=== PATIENT | male | born 1965 | race Caucasian/White ===

== ENCOUNTER 2018-12-17 15:49 | Emergency (ER) | payer OTHER ==
[2018-12-17 16:01] VITALS: BP 139/94
[2018-12-17] MEDS ORDERED: ASPIRIN 81 MG TAB.CHEW PO ONE (16:15)
[2018-12-17 16:17] LABS: BASO % 0 % (0-3); EOS # 0.1 x10^3/uL (0.0-0.7); EOS % 1 % (0-3); HEMATOCRIT 48.8 % (39.0-53.0); HEMOGLOBIN 16.4 g/dL (13.0-17.5); LYMPH # 2.2 x10^3/uL (1.0-4.8); LYMPH % 32 % (24-48); MEAN CORPUSCULAR HEMOGLOBIN 32 pg (25-35); MEAN CORPUSCULAR HGB CONC 34 g/dL (31-37); MEAN CORPUSCULAR VOLUME 94 fL (79-100); MONO # 0.8 x10^3/uL (0.0-1.1); MONO % 12 % (0-9); NEUT # 3.6 x10^3uL (1.8-7.7); NEUT % 54 % (31-73); PLATELET COUNT 195 x10^3/uL (140-400); RED BLOOD COUNT 5.19 x10^6/uL (4.30-5.70); RED CELL DISTRIBUTION WIDTH 12.7 % (11.5-14.5); WHITE BLOOD COUNT 6.8 x10^3/uL (4.0-11.0)
[2018-12-17 16:31] LABS: ALBUMIN 3.6 g/dL (3.4-5.0); CALCIUM 9.3 mg/dL (8.5-10.1); GFR 78.2; POTASSIUM 3.9 mmol/L (3.5-5.1); TOTAL BILIRUBIN 0.6 mg/dL (0.2-1.0); TOTAL PROTEIN 7.2 g/dL (6.4-8.2)
--- NOTE | 2018-12-17 16:46 | EKG ---
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
--- NOTE | 2018-12-17 17:34 | PHYS DOC ---
Past History Past Medical History: No Pertinent History Past Surgical History: Tonsillectomy Alcohol Use: None Drug Use: None Adult General Chief Complaint Chief Complaint: CHEST PAIN HPI HPI 53-year-old male presents with chest pain. Patient states that he has been having intermittent chest pain for the last 3 weeks. It is left-sided and radiates up into his neck. He does seem to be worse with exertion and improves with rest. Patient denies shortness of breath or diaphoresis. The emergency room today because he additionally has tingling in the left arm and the episode has lasted for several hours. Usually these episodes last less than 30 minutes. Today's chest pain is a 3 out of 10 pressure sensation. He denies fever or chills. He had a stress test but has been about 5 years. He does have a family history of cardiovascular disease. Review of Systems Review of Systems Constitutional: Denies fever or chills [] Eyes: Denies change in visual acuity, redness, or eye pain [] HENT: Denies nasal congestion or sore throat [] Respiratory: Denies cough or shortness of breath [] Cardiovascular: No additional information not addressed in HPI [] GI: Denies abdominal pain, nausea, vomiting, bloody stools or diarrhea [] : Denies dysuria or hematuria [] Musculoskeletal: Denies back pain or joint pain [] Integument: Denies rash or skin lesions [] Neurologic: Denies headache, focal weakness or sensory changes [] Endocrine: Denies polyuria or polydipsia [] All other systems were reviewed and found to be within normal limits, except as documented in this note. Current Medications Current Medications Current Medications Medications (Trade) Dose Ordered Sig/Mely Start Time Stop Time Status Last Admin Dose Admin Aspirin (Children'S Aspirin) 324 mg 1X ONCE 12/17/18 16:15 12/17/18 16:16 DC 12/17/18 16:07 324 MG Allergies Allergies Allergies Coded Allergies Type Severity Reaction Last Updated Verified No Known Drug Allergies 11/17/14 No Physical Exam Physical Exam Constitutional: Well developed, well nourished, no acute distress, non-toxic appearance. [] HENT: Normocephalic, atraumatic, bilateral external ears normal, oropharynx moist, no oral exudates, nose normal. [] Eyes: PERRLA, EOMI, conjunctiva normal, no discharge. [] Neck: Normal range of motion, no tenderness, supple, no stridor. [] Cardiovascular:Heart rate regular rhythm, no murmur [] Lungs & Thorax: Bilateral breath sounds clear to auscultation [] Abdomen: Bowel sounds normal, soft, no tenderness, no masses, no pulsatile masses. [] Skin: Warm, dry, no erythema, no rash. [] Back: No tenderness, no CVA tenderness. [] Extremities: No tenderness, no cyanosis, no clubbing, ROM intact, no edema. [] Neurologic: Alert and oriented X 3, normal motor function, normal sensory function, no focal deficits noted. [] Psychologic: Affect normal, judgement normal, mood normal. [] Current Patient Data Vital Signs Vital Signs Date Time Temp Pulse Resp B/P (MAP) Pulse Ox O2 Delivery O2 Flow Rate FiO2 12/17/18 16:01 97.4 70 18 96 Room Air Lab Results Laboratory Tests Test 12/17/18 15:55 White Blood Count 6.8 x10^3/uL (4.0-11.0) Red Blood Count 5.19 x10^6/uL (4.30-5.70) Hemoglobin 16.4 g/dL (13.0-17.5) Hematocrit 48.8 % (39.0-53.0) Mean Corpuscular Volume 94 fL (79-100) Mean Corpuscular Hemoglobin 32 pg (25-35) Mean Corpuscular Hemoglobin Concent 34 g/dL (31-37) Red Cell Distribution Width 12.7 % (11.5-14.5) Platelet Count 195 x10^3/uL (140-400) Neutrophils (%) (Auto) 54 % (31-73) Lymphocytes (%) (Auto) 32 % (24-48) Monocytes (%) (Auto) 12 % (0-9) H Eosinophils (%) (Auto) 1 % (0-3) Basophils (%) (Auto) 0 % (0-3) Neutrophils # (Auto) 3.6 x10^3uL (1.8-7.7) Lymphocytes # (Auto) 2.2 x10^3/uL (1.0-4.8) Monocytes # (Auto) 0.8 x10^3/uL (0.0-1.1) Eosinophils # (Auto) 0.1 x10^3/uL (0.0-0.7) Basophils # (Auto) 0.0 x10^3/uL (0.0-0.2) Sodium Level 143 mmol/L (136-145) Potassium Level 3.9 mmol/L (3.5-5.1) Chloride Level 105 mmol/L (98-107) Carbon Dioxide Level 29 mmol/L (21-32) Anion Gap 9 (6-14) Blood Urea Nitrogen 13 mg/dL (8-26) Creatinine 1.0 mg/dL (0.7-1.3) Estimated GFR (Cockcroft-Gault) 78.2 BUN/Creatinine Ratio 13 (6-20) Glucose Level 78 mg/dL (70-99) Calcium Level 9.3 mg/dL (8.5-10.1) Total Bilirubin 0.6 mg/dL (0.2-1.0) Aspartate Amino Transferase (AST) 23 U/L (15-37) Alanine Aminotransferase (ALT) 55 U/L (16-63) Alkaline Phosphatase 109 U/L (46-116) Troponin I Quantitative < 0.017 ng/mL (0-0.055) Total Protein 7.2 g/dL (6.4-8.2) Albumin 3.6 g/dL (3.4-5.0) Albumin/Globulin Ratio 1.0 (1.0-1.7) EKG EKG Sinus rhythm, rate 70, normal axis, no ST elevations or depressions.[] Radiology/Procedures Radiology/Procedures [] Impressions: Preliminary interpretation chest x-ray: No acute cardiopulmonary findings. Course & Med Decision Making Course & Med Decision Making Pertinent Labs and Imaging studies reviewed. (See chart for details) The patient was given aspirin and an EKG was performed within 10 minutes of arrival. Patient's EKG is unremarkable. His labs are unremarkable. His troponin is negative. The patient's symptoms have improved. His HEART score is 3. I discussed the patient's symptoms and the results with him. He is reassured. He will follow-up with his primary care physician and consider further testing. He is stable for discharge at this time. [] Dragon Disclaimer Dragon Disclaimer This electronic medical record was generated, in whole or in part, using a voice recognition dictation system. Departure Departure: Impression: Primary Impression: Chest pain Disposition: HOME, SELF-CARE Condition: STABLE Referrals: SOPHIA GODWIN (PCP) Patient Instructions: Chest Pain (Nonspecific), [id number] Problem Qualifiers Primary Impression: Chest pain Chest pain type: precordial pain Qualified Codes: R07.2 - Precordial pain MARIETTA HOWE DO Dec 17, 2018 17:34
--- NOTE | 2018-12-18 03:48 | RAD ---
Chest radiograph 12/17/2018 3:54 PM INDICATION: Chest pain COMPARISON: None available TECHNIQUE: Portable upright frontal view of the chest is provided. FINDINGS: The cardiomediastinal silhouette is within normal limits. There are no pleural effusions. There is no pulmonary vascular congestion. There is no pneumothorax. The lungs are clear. No significant osseous abnormality is identified. IMPRESSION: No acute cardiopulmonary process. Electronically signed by: Nelda Addison MD (12/18/2018 3:45 AM) [facility]
== END 2018-12-17 17:44 | disposition home or self-care (01) ==
LOC: ER 15:49
DX: R07.2 Precordial pain (principal); R20.2 Paresthesia of skin
CPT/HCPCS: 36415; 71045; 80053; 84484; 85025; 93005; 99285

== ENCOUNTER 2020-12-16 23:56 | Emergency (ER) | payer OTHER ==
[~2020-12-16] VITALS: Ht 170.2 cm; Wt 83.0 kg
--- NOTE | 2020-12-17 00:37 | PHYS DOC ---
Past History Past Medical History: No Pertinent History, Bronchitis Past Surgical History: Tonsillectomy, Other Additional Past Surgical Histo: tendon in elbow, two basal cell removed, adnoidectomy, vasectomy Alcohol Use: Occasionally Drug Use: None General Adult EDM: Chief Complaint: SHORTNESS OF BREATH HPI: HPI: ".. I still coughing all the time... I just have one more Amoxicillin pill.. and I am no better.. " I been checked for COVID it was negative.. I had both my COVID vaccination...s Moderna. My parents had colds.. but not around anyone else that has been sick..... Just that I feel like I have fever and coughing all the time...".." I am coughing so hard at times... I all most vomit..." Patient is a 55 year old male who presents with above hx and complaints of congestion, cough, seasonal allergies and malaise. 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 Has had extensive TDY... [place], [place], and 9-year assignment in [place]. Patient is normally healthy. No significant history of cardiac disorders and CHF. Does not smoke. Completed his Moderna vaccinations on October 31. No recent travel. Parents recently had an upper respiratory infection. However patient had been respiratory infection before his parents. No new exposures. Does have significant seasonal allergy issues. In the past he is required use of Екатерина Zyrtec and Flonase to control seasonal exacerbations. On reviewing his chart in November 2018 had a similar severe episode of allergic rhinitis , seasonal exacerbation of upper respiratory and bronchiectasis. Patient has not had any hx of immuno suppression. . His cat 17 years Mr. Jasso has been coughing, but does not appear to be particularly ill. Patient has not been able to sleep tonight because the continued coughing spasms. Review of Systems: Review of Systems: Constitutional: Subjective complaints of fever HEENT: postnasal drainage, rhinorrhea, Eyes: Denies change in visual acuity ,. Respiratory: Persistent nagging cough and wheezing Cardiovascular: Denies chest pain or edema GI: Denies abdominal pain, nausea, vomiting, bloody stools or diarrhea : Denies dysuria Musculoskeletal: Denies back pain or joint pain Integument: Denies rash Neurologic: Denies headache, focal weakness or sensory changes Endocrine: Denies polyuria or polydipsia Lymphatic: Denies swollen glands Psychiatric: Denies depression or anxiety Family History: Family History: Father mother have upper respiratory infection Current Medications: Current Meds: See nursing for home meds Allergies: Allergies: Allergies Coded Allergies Type Severity Reaction Last Updated Verified No Known Drug Allergies 11/17/14 No Physical Exam: PE: Constitutional: Moderate acute distress, non-toxic appearance. [] HENT: Normocephalic, atraumatic, bilateral external ears normal, oropharynx moist, copious post nasal drainage, no oral exudates, nose swollen turbinates and clear rhinorrhea Eyes: PERRLA, EOMI, conjunctiva mild injection, no discharge. Glasses Neck: Normal range of motion, no tenderness, supple, no stridor. [] Cardiovascular: Tachycardia heart rate regular rhythm, no murmur [] Lungs & Thorax: Bilateral breath sounds equal apex with scattered wheezes throughout on auscultation []. Occasional bouts of spasmodic coughing Abdomen: Bowel sounds normal, soft, no tenderness, no masses, no pulsatile masses. [] Skin: Warm, dry, no erythema, no rash. [] Back: No tenderness, no CVA tenderness. [] Extremities: No tenderness, no cyanosis, no clubbing, ROM intact, no edema. [] No cording in the legs appreciated. Old surgery scars. No cording appreciated Neurologic: Alert and oriented X 3, moves all extremities on request, does have distal sensory. No ", no focal deficits noted. [] Psychologic: Affect anxious, judgement normal, mood normal. [] Current Patient Data: Vital Signs: Vital Signs Date Time Temp Pulse Resp B/P (MAP) Pulse Ox O2 Delivery O2 Flow Rate FiO2 12/16/20 23:56 98.2 96 32 139/103 (115) 96 Room Air EKG: EKG: My interpretation EKG shows sinus rhythm at 86 bpm. There is a right bundle branch block. But no findings of acute STEMI of contralateral changes [] Radiology/Procedures: Radiology/Procedures: [][address] [address] IMAGING REPORT Signed PATIENT: YVONNE WATKINS RACCOUNT: [id number] : 10/31/2003 LOCATION: ER AGE: 17 SEX: M EXAM STATUS: REG ER ORD. PHYSICIAN: RICHARD STOCKTON MD REASON: dyspnea, pleuretic chest pain, OMNI 350, 100ml PROCEDURE: CT ANGIOGRAPHY CHEST EXAMINATION: CTA CHEST CLINICAL HISTORY: Dyspnea, pleuritic chest pain Technique: Spiral CT acquisition of the chest from the thoracic inlet to the upper abdomen following IV contrast with coronal and sagittal reformatted images also provided for review. 3D maximum intensity projection images also performed. CT Dose Reduction Employed: One or more of the following individualized dose reduction techniques were utilized for this examination: 1. Automated exposure control 2. Adjustment of the mA and/or kV according to patient size 3. Use of iterative reconstruction technique. Comparison: Chest radiograph 12/16/2020 FINDINGS: Pulmonary Vasculature: No evidence of main, lobar, or segmental pulmonary arterial thrombus. Lung Parenchyma, Pleura, and Airways: No focal consolidation. No suspicious pulmonary nodule. No pleural effusion. Central airways patent. Lower Neck, Lymph Nodes, and Mediastinum: Visualized thyroid gland within normal limits. No mediastinal, hilar, or axillary lymphadenopathy. Heart, Pericardium, and Thoracic Vessels: Cardiac chambers normal in size. No pericardial effusion. No thoracic aortic aneurysm. 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 Bones and Soft Tissues: No evidence of acute osseous abnormality. Upper Abdomen: Partially visualized upper abdomen unremarkable. IMPRESSION: No evidence of main, lobar, or segmental pulmonary malaise and. No evidence of acute cardiopulmonary abnormality. Electronically signed by: Brandon Thomas DO (12/17/2020 2:06 AM) [facility] DICTATED AND SIGNED BY: BRANDON THOMAS DO DATE: 12/17/20 0201 CC: RICHARD STOCKTON MD; STEFANIE MELISSA MD ~MTH0 0 Heart Score: C/O Chest Pain: N/A HEART Score for Chest Pain: HEART Score for Chest Pain Response (Comments) Value History Slighlty/Non-Suspicious 0 ECG Normal 0 Age >45 - < 65 1 Risk Factors 1 or 2 Risk Factors 1 Troponin < Normal Limit 0 Total 2 Risk Factors: Risk Factors: DM, Current or recent (<one month) smoker, HTN, HLP, family history of CAD, obesity. Risk Scores: Score 0 - 3: 2.5% MACE over next 6 weeks - Discharge Home Score 4 - 6: 20.3% MACE over next 6 weeks - Admit for Clinical Observation Score 7 - 10: 72.7% MACE over next 6 weeks - Early Invasive Strategies Course & Med Decision Making: Course & Med Decision Making Pertinent Labs and Imaging studies reviewed. (See chart for details) Patient does have a limited exposure to seasonal allergies. Remain indoors much as possible and air conditioning. Start Claritin twelve 1 tablet twice a day. Use Flonase 2 sprays every night. Prednisone 50 mg a day for 5 days. Use MDI 2 puffs 4 times a day. Patient to complete a course of Zithromax 250 mg a day for 5 days. Patient follow-up primary care. Patient return if any concerns. Impression: 1. Bronchitis/bronchiectasis 2. Reactive airway 3. Seasonal allergy 4. Viral syndrome [] Dragon Disclaimer: Dragon Disclaimer: This electronic medical record was generated, in whole or in part, using a voice recognition dictation system. Departure Departure: Referrals: SOPHIA GODWIN (PCP) Scripts Fluticasone Propionate (Flonase Allergy Relief) 9.9 Ml [place].susp 2 SPRAYS NS DAILY for allergies for 30 Days, ML Prov: RICHARD STOCKTON MD 12/17/20 Loratadine/Pseudoephedrine (CLARITIN-D 12 HOUR TABLET) 1 Each Tab.er.12h 1 TAB PO BID for allergy for 20 Days, #40 TAB 0 Refills Prov: RICHARD STOCKTON MD 12/17/20 Prednisone (PREDNISONE) 50 Mg Tablet 50 MG PO DAILY for reactive for 5 Days, #5 TAB Prov: RICHARD STOCKTON MD 12/17/20 Azithromycin (AZITHROMYCIN TABLET) 250 Mg Tablet 250 MG PO DAILY for ANTI-BIOTIC for 5 Days, #5 TAB 0 Refills Prov: RICHARD STOCKTON MD 12/17/20 Dragon Disclaimer This chart was dictated in whole or in part using Voice Recognition software in a busy, high-work load, and often noisy Emergency Department environment. It may contain unintended and wholly unrecognized errors or omissions. RICHARD STOCKTON MD Dec 17, 2020 00:37
[2020-12-17] MEDS ORDERED: LORA1TAB47 PO (01:18)
[2020-12-17] MEDS ORDERED: FLUT9.9S NS (01:18)
[2020-12-17] MEDS ORDERED: AZIT250T6 PO (01:18)
[2020-12-17] MEDS ORDERED: PRED50TA PO (01:18)
[2020-12-17] MEDS ORDERED: AZITHROMYCIN 250 MG TABLET. PO ONE (01:30)
[2020-12-17] MEDS ORDERED: HYDROcodon/IBUPROFEN 7.5/200MG 1 TAB TABLET PO ONE (01:30)
[2020-12-17] MEDS ORDERED: methylPREDNISolone ACETATE 40 MG/ML VIAL. IM ONE (01:30)
[2020-12-17] MEDS ORDERED: ALBUTEROL SULFATE 8GM INHALER. INH ONE (01:30)
[2020-12-17 01:49] LABS: BASO # 0.1 x10^3/uL (0.0-0.2); BASO % 1 % (0-3); EOS # 0.1 x10^3/uL (0.0-0.7); EOS % 1 % (0-3); HEMATOCRIT 43.3 % (39.0-53.0); LYMPH # 2.7 x10^3/uL (1.0-4.8); LYMPH % 30 % (24-48); MEAN CORPUSCULAR HEMOGLOBIN 33 pg (25-35); MEAN CORPUSCULAR HGB CONC 35 g/dL (31-37); MEAN CORPUSCULAR VOLUME 95 fL (79-100); MONO # 0.8 x10^3/uL (0.0-1.1); MONO % 9 % (0-9); NEUT # 5.4 x10^3uL (1.8-7.7); NEUT % 59 % (31-73); PLATELET COUNT 198 x10^3/uL (140-400); RED BLOOD COUNT 4.58 x10^6/uL (4.30-5.70); RED CELL DISTRIBUTION WIDTH 12.7 % (11.5-14.5); WHITE BLOOD COUNT 9.1 x10^3/uL (4.0-11.0)
[2020-12-17 01:50] LABS: CALCIUM 8.6 mg/dL (8.5-10.1); CREATININE 1.1 mg/dL (0.7-1.3); GFR 69.5; POTASSIUM 3.7 mmol/L (3.5-5.1)
--- NOTE | 2020-12-17 02:20 | RAD ---
EXAMINATION: XR CHEST 2V CLINICAL HISTORY: Cough, fever, dyspnea EXAM DATE/TIME: 12/17/2020 1:24 AM COMPARISON: 12/17/2018 FINDINGS: Lines, Tubes, and Devices: None. Cardiomediastinal Silhouette: Within normal limits. Lungs and Pleura: Pulmonary hypoexpansion without evidence of focal airspace consolidation or pleural effusion. Pulmonary vasculature unremarkable. Bones and Soft Tissues: Mild degenerative changes of the thoracic spine. IMPRESSION: Pulmonary hypoexpansion without evidence of acute cardiopulmonary abnormality or significant interval change. Electronically signed by: Brandon Peters DO (12/17/2020 2:18 AM) [facility]
--- NOTE | 2020-12-17 02:23 | EKG ---
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
[2020-12-17 02:30] VITALS: BP 123/79
== END 2020-12-17 02:46 | disposition home or self-care (01) ==
LOC: ER 23:56
DX: J45.909 Unspecified asthma, uncomplicated (principal); B34.9 Viral infection, unspecified
CPT/HCPCS: 36415; 71046; 80048; 82550; 83880; 84484; 85025; 93005; 94640; 96372; 99285; J1030; 94664